=== PATIENT | male | born 1970 | race Caucasian/White ===

== ENCOUNTER 2017-04-11 19:36 | Emergency (ER) | payer MEDICAID ==
[2017-04-11 23:10] VITALS: BP 148/98
== END 2017-04-11 23:10 | disposition home or self-care (01) ==
LOC: ED 19:36
DX: L03.116 Cellulitis of left lower limb (principal)
CPT/HCPCS: J0696

== ENCOUNTER 2017-09-24 13:41 | Emergency (ER) | payer OTHER ==
[~2017-09-24] VITALS: Ht 177.8 cm; Wt 117.9 kg
[2017-09-24 13:51] VITALS: BP 140/92; Ht 177.8 cm; Wt 117.9 kg
== END 2017-09-24 14:12 | disposition other institution (70) ==
LOC: ED 13:41
DX: Z02.89 Encounter for other administrative examinations (principal); F11.10 Opioid abuse, uncomplicated; R03.0 Elevated blood-pressure reading, without diagnosis of hypertension; F17.210 Nicotine dependence, cigarettes, uncomplicated; Z71.6 Tobacco abuse counseling
CPT/HCPCS: 99406

== ENCOUNTER 2017-10-18 09:49 | Emergency (ER) | payer MEDICAID ==
[~2017-10-18] VITALS: Ht 177.8 cm; Wt 135.4 kg
[2017-10-18 09:56] VITALS: Ht 177.8 cm; Wt 135.4 kg
[2017-10-18 11:35] LABS: BASOPHIL % 0.1 % (0-2); PLATELET COUNT 175 x10^3mcL (130-400)
[2017-10-18 11:47] LABS: ALKALINE PHOSPHATASE 131 U/L (46-116); ALT/SGPT 51 U/L (16-63); AST/SGOT 93 U/L (15-37); CALCIUM 8.8 mg/dL (8.5-10.1); CARBON DIOXIDE 24.7 mmol/L (21-32); CHLORIDE SERUM 99 mmol/L (98-107); CREATININE SERUM 0.8 mg/dL (0.7-1.3); GFR1 > 60 mL/min; GLUCOSE SERUM 132 mg/dL (74-106); LIPASE 57 IU/L (73-393); POTASSIUM SERUM 4.4 mmol/L (3.5-5.1); SODIUM SERUM 133 mmol/L (136-145)
[2017-10-18 11:50] LABS: ALBUMIN 3.1 g/dL (3.4-5.0); TOTAL PROTEIN, SERUM 8.3 g/dL (6.4-8.2)
[2017-10-18 12:02] LABS: RED CELL DISTRIBUTION WIDTH 14.7 % (11.5-14.5)
[2017-10-18 12:42] VITALS: BP 117/63
== END 2017-10-18 12:43 | disposition home or self-care (01) ==
LOC: ED 09:49
PROVIDERS: Emergency Medicine
DX: R10.9 Unspecified abdominal pain (principal); R11.0 Nausea; F11.90 Opioid use, unspecified, uncomplicated
CPT/HCPCS: 36415; J1885; Q0162